=== PATIENT | female | born 1985 | race Caucasian/White ===

== ENCOUNTER 2016-06-13 14:25 | Emergency (ER) | payer MEDICAID ==
--- NOTE | 2016-06-13 14:57 | Emergency Department Report ---
Entered by DM SAEED, acting as scribe for BALDO KOVACS NP. Chief Complaint: Abdominal Pain Stated Complaint: 6WKS /ABD PAIN Time Seen by Provider: 06/13/16 14:48 - HPI History of Present Illness: 30 y/o female who is non-toxic appearing, in no acute distress, presents c/o right sided pelvic pain today. Describes pain as sharp, tearing sensation. She reports she is 6 weeks by LNMP, no OB or pre- care during this . Denies vaginal bleeding, vaginal discharge, dysuria. Notes Hx of uterine fibroids, ovarian cyst, ectopic . A3. PSHx . - ROS Review of Systems: Reports right pelvic pain, . Denies vaginal bleeding, vaginal discharge, dysuria. - Exam Vital Signs: Vital Signs 06/13/16 14:31 Temperature 98.6 F Pulse Rate 74 Respiratory 20 Rate Blood Pressure 140/89 O2 Sat by Pulse 100 Oximetry Physical Exam: Constitutional: Non toxic appearing, NAD. Respiratory: No respiratory distress. Abdomen: Abdomen is non-distended, soft with no tenderness to palpation in all quadrants. Slight discomfort with palpation to right pelvic area. MSE screening note: Focused history and physical exam performed. Due to findings the following was ordered:CBC, CMP, serum HCG quantitative, UA, Ultrasound OB Patient discussed with doctor:: MERRY GOTTI (continue with plan of care.) ED Disposition for MSE Condition: Stable Instructions: Abdominal Pain (ED) This documentation as recorded by the scribe,DM SAEED,accurately reflects the service I personally performed and the decisions made by ,BALDO KOVACS, [place].
[2016-06-13 15:58] LABS: Basophils % (Auto) 0.6 % (0.0-1.8); Eosinophils % (Auto) 1.6 % (0.0-4.3); Hematocrit 39.5 % (30.3-42.9); Hemoglobin 13.1 gm/dl (10.1-14.3); Mean Corpuscular HGB Conc 33 % (30-34); Mean Corpuscular Hemoglobin 30 pg (28-32); Mean Corpuscular Volume 90 fl (79-97); Platelet Count 284 K/mm3 (140-440); Red Cell Distribution Width 12.5 % (13.2-15.2); White Blood Count 13.7 K/mm3 (4.5-11.0)
[2016-06-13 16:13] LABS: Alanine Aminotransferase 8 units/L (7-56); Albumin 3.7 g/dL (3.9-5); Albumin/Globulin Ratio 1.6 %; Alkaline Phosphatase 56 units/L (35-129); Anion Gap 16 mmol/L; BUN/Creatinine Ratio 16.66; Blood Urea Nitrogen 10 mg/dL (7-17); Calcium 8.8 mg/dL (8.4-10.2); Carbon Dioxide 22 mmol/L (22-30); Chloride 102.1 mmol/L (98-107); Glucose 99 mg/dL (65-100); Sodium 136 mmol/L (137-145)
[2016-06-13 16:58] LABS: Bacteria,Urine 1+ /HPF (Negative); Bilirubin,Urine NEG (Negative); Blood,Urine SM (Negative); Ketones,Urine TR mg/dL (Negative); Leukocyte Esterase,Urine NEG (Negative); Mucus,Urine 1+ /HPF; Nitrite,Urine NEG (Negative); Protein,Urine <15 mg/dL mg/dL (Negative)
[2016-06-13 17:01] LABS: WBC,Urine < 1.0 /HPF (0.0-6.0)
--- NOTE | 2016-06-13 18:27 | Ultrasound Report ---
FINAL REPORT PROCEDURE: US OB TRANSVAGINAL TECHNIQUE: Real-time transabdominal and transvaginal sonography of the uterus, placenta, amniotic fluid, adnexa, and fetus was performed with image documentation. Measurements were obtained to determine age/size. M-mode Doppler was used to document heartbeat. CPT 53368 and 44319 HISTORY: pelvic pain h/o ovarian cyst COMPARISON: No prior studies are available for comparison. FINDINGS: ADDITIONAL GESTATION: None. Single live intrauterine is seen with crown-rump length of 3.7 millimeters corresponding to 6 weeks 0 days gestational age. Mean sac diameter is 2.4 cm corresponding to 7 weeks 3 days gestational age. Average gestational age is 6 weeks 5 days with estimated date of delivery of February 01, 2017. heart rate is 98 beats per minute. Yolk sac is seen. Right ovary measures 3.5 x 2.4 x 3.1 cm and contains a 2.4 cm complex cyst. Left ovary measures 2.7 x 1.7 x 2.3 cm and has 2 small follicles. No free pelvic fluid is seen. IMPRESSION: 1. Single live intrauterine gestation at approximately 6 weeks 5 days. 2. EDC by US February 01, 2017. 3. Complete anatomic survey at 18-20 weeks suggested.
--- NOTE | 2016-06-13 18:27 | Ultrasound Report ---
FINAL REPORT PROCEDURE: US OB \T\lt; = 14 WEEKS FETUS TECHNIQUE: Real-time transabdominal and transvaginal sonography of the uterus, placenta, amniotic fluid, adnexa, and fetus was performed with image documentation. Measurements were obtained to determine age/size. M-mode Doppler was used to document heartbeat. CPT 15361 and 47761 HISTORY: pelvic pain/6 weeks COMPARISON: No prior studies are available for comparison. FINDINGS: ADDITIONAL GESTATION: None. Single live intrauterine is seen with crown-rump length of 3.7 millimeters corresponding to 6 weeks 0 days gestational age. Mean sac diameter is 2.4 cm corresponding to 7 weeks 3 days gestational age. Average gestational age is 6 weeks 5 days with estimated date of delivery of February 01, 2017. heart rate is 98 beats per minute. Yolk sac is seen. Right ovary measures 3.5 x 2.4 x 3.1 cm and contains a 2.4 cm complex cyst. Left ovary measures 2.7 x 1.7 x 2.3 cm and has 2 small follicles. No free pelvic fluid is seen. IMPRESSION: 1. Single live intrauterine gestation at approximately 6 weeks 5 days. 2. EDC by US February 01, 2017 3. Complete anatomic survey at 18-20 weeks suggested.
--- NOTE | 2016-06-13 20:06 | Emergency Department Report ---
ED Abdominal Pain HPI - General Chief Complaint: Abdominal Pain Stated Complaint: 6WKS /ABD PAIN Time Seen by Provider: 06/13/16 19:53 Source: patient Mode of arrival: Ambulatory Limitations: No Limitations - History of Present Illness Initial Comments: 30 y/o female who is non-toxic appearing, in no acute distress, presents c/o right sided pelvic pain today. Describes pain as intermittent sharp, tearing sensation and rates it as a 9 out of 10. She denies any abdominal pain at this time. She reports she is 6 weeks according to LMP, no OB or pre- care during this . She states she was unable to get an appointment with OBGYN since the next available apppointment was on June 23. Admits to nausea. Denies fever, chills, vomiting, chest pain, shortness of breath, vaginal bleeding, vaginal discharge, dysuria, increased urinary frequency or urgency, blood in urine. Notes Hx of uterine fibroids, ovarian cyst and ectopic . A3. MD Complaint: abdominal pain Onset/Timin -: week(s) Location: RLQ Radiation: none Migration to: no migration Severity: Unable to Determine Severity scale (0 -10): 0 Quality: stabbing, sharp Consistency: intermittent Improves With: nothing Worsens With: other (cough/sneezing) Associated Symptoms: nausea. denies: vomiting, diarrhea, fever, chills, constipation, dysuria, hematemesis, hematochezia, hematuria - Related Data LMP Date: 04/27/16 Previous Rx's Medication Instructions Recorded Last Taken Type Doxylamine/Pyridoxine HCl 2 each PO QHS #40 tablet. 06/13/16 Unknown Rx [Lenin Ware 10-10 mg Tablet] Vit-Fe Fumar-FA [ 1 tab PO QDAY #30 tablet 06/13/16 Unknown Rx Vitamin] Allergies Allergy/AdvReac Type Severity Reaction Status Date / Time No Known Allergies Allergy Unverified 06/13/16 14:35 ED Review of Systems ROS: Stated complaint: 6WKS /ABD PAIN Other details as noted in HPI Constitutional: denies: chills, fever, malaise Eyes: denies: eye pain ENT: denies: ear pain, throat pain, congestion Respiratory: denies: cough, shortness of breath, wheezing Cardiovascular: denies: chest pain, palpitations Endocrine: no symptoms reported Gastrointestinal: abdominal pain, nausea. denies: vomiting, diarrhea, constipation Genitourinary: denies: urgency, dysuria, frequency, hematuria, discharge Neurological: denies: headache, weakness ED Past Medical Hx - Past Medical History Previous Medical History?: No - Surgical History Additional Surgical History: ovarian cyst with rupture of fallopian tube - Social History Smoking Status: Current Every Day Smoker Substance Use Type: None - Medications Home Medications: Home Medications Medication Instructions Recorded Confirmed Last Taken Type Doxylamine/Pyridoxine HCl 2 each PO QHS #40 tablet. 06/13/16 Unknown Rx [Diclegis Dr 10-10 mg Tablet] Vit-Fe Fumar-FA [ 1 tab PO QDAY #30 tablet 06/13/16 Unknown Rx Vitamin] ED Physical Exam - General Limitations: No Limitations General appearance: alert, in no apparent distress - Head Head exam: Present: atraumatic, normocephalic - Eye Eye exam: Present: normal appearance, EOMI - ENT ENT exam: Present: normal exam, mucous membranes moist - Neck Neck exam: Present: normal inspection, full ROM. Absent: tenderness - Respiratory Respiratory exam: Present: normal lung sounds bilaterally. Absent: respiratory distress, wheezes, rales, rhonchi - Cardiovascular Cardiovascular Exam: Present: regular rate, normal rhythm. Absent: systolic murmur, diastolic murmur, rubs, gallop - GI/Abdominal GI/Abdominal exam: Present: soft, normal bowel sounds. Absent: tenderness, guarding, rebound, rigid - Rectal Rectal exam: Present: deferred - Extremities Exam Extremities exam: Present: normal inspection, full ROM - Back Exam Back exam: Present: normal inspection, full ROM. Absent: CVA tenderness (R), CVA tenderness (L) - Neurological Exam Neurological exam: Present: alert, oriented X3, normal gait - Psychiatric Psychiatric exam: Present: normal affect, normal mood - Skin Skin exam: Present: warm, dry, intact ED Course Vital Signs 06/13/16 14:31 Temperature 98.6 F Pulse Rate 74 Respiratory 20 Rate Blood Pressure 140/89 O2 Sat by Pulse 100 Oximetry ED Medical Decision Making - Lab Data Result diagrams: 06/13/16 15:36 06/13/16 15:36 Vital Signs 06/13/16 14:31 Temperature 98.6 F Pulse Rate 74 Respiratory 20 Rate Blood Pressure 140/89 O2 Sat by Pulse 100 Oximetry Lab Results 06/13/16 06/13/16 06/13/16 Range/Units 15:36 15:36 15:36 WBC 13.7 H (4.5-11.0) K/mm3 RBC 4.40 (3.65-5.03) M/mm3 Hgb 13.1 (10.1-14.3) gm/dl Hct 39.5 (30.3-42.9) % MCV 90 (79-97) fl MCH 30 (28-32) pg MCHC 33 (30-34) % RDW 12.5 L (13.2-15.2) % Plt Count 284 (140-440) K/mm3 Lymph % (Auto) 19.5 (13.4-35.0) % [place] % (Auto) 8.0 H (0.0-7.3) % Eos % (Auto) 1.6 (0.0-4.3) % Baso % (Auto) 0.6 (0.0-1.8) % Lymph # 2.7 (1.2-5.4) K/mm3 [place] # 1.1 H (0.0-0.8) K/mm3 Eos # 0.2 (0.0-0.4) K/mm3 Baso # 0.1 (0.0-0.1) K/mm3 Seg Neutrophils % 70.3 H (40.0-70.0) % Seg Neutrophils # 9.7 H (1.8-7.7) K/mm3 Sodium 136 L (137-145) mmol/L Potassium 4.0 (3.6-5.0) mmol/L Chloride 102.1 (98-107) mmol/L Carbon Dioxide 22 (22-30) mmol/L Anion Gap 16 mmol/L BUN 10 (7-17) mg/dL Creatinine 0.6 L (0.7-1.2) mg/dL Estimated GFR > 60 ml/min BUN/Creatinine Ratio 16.66 % Glucose 99 (65-100) mg/dL Calcium 8.8 (8.4-10.2) mg/dL Total Bilirubin 0.40 (0.1-1.2) mg/dL AST 12 (5-40) units/L ALT 8 (7-56) units/L Alkaline Phosphatase 56 (35-129) units/L Total Protein 6.0 L (6.3-8.2) g/dL Albumin 3.7 L (3.9-5) g/dL Albumin/Globulin Ratio 1.6 % HCG, Quant 46012 H (0-4) mIU/mL Urine Color (Yellow) Urine Turbidity (Clear) Urine pH (5.0-7.0) Ur Specific [place] (1.003-1.030) Urine Protein (Negative) mg/dL Urine Glucose (UA) (Negative) mg/dL Urine Ketones (Negative) mg/dL Urine Blood (Negative) Urine Nitrite (Negative) Urine Bilirubin (Negative) Urine Urobilinogen (<2.0) mg/dL Ur Leukocyte Esterase (Negative) Urine WBC (Auto) (0.0-6.0) /HPF Urine RBC (Auto) (0.0-6.0) /HPF U Epithel Cells (Auto) (0-13.0) /HPF Urine Bacteria (Auto) (Negative) /HPF Urine Mucus /HPF 06/13/16 Range/Units 16:04 WBC (4.5-11.0) K/mm3 RBC (3.65-5.03) M/mm3 Hgb (10.1-14.3) gm/dl Hct (30.3-42.9) % MCV (79-97) fl MCH (28-32) pg MCHC (30-34) % RDW (13.2-15.2) % Plt Count (140-440) K/mm3 Lymph % (Auto) (13.4-35.0) % [place] % (Auto) (0.0-7.3) % Eos % (Auto) (0.0-4.3) % Baso % (Auto) (0.0-1.8) % Lymph # (1.2-5.4) K/mm3 [place] # (0.0-0.8) K/mm3 Eos # (0.0-0.4) K/mm3 Baso # (0.0-0.1) K/mm3 Seg Neutrophils % (40.0-70.0) % Seg Neutrophils # (1.8-7.7) K/mm3 Sodium (137-145) mmol/L Potassium (3.6-5.0) mmol/L Chloride (98-107) mmol/L Carbon Dioxide (22-30) mmol/L Anion Gap mmol/L BUN (7-17) mg/dL Creatinine (0.7-1.2) mg/dL Estimated GFR ml/min BUN/Creatinine Ratio % Glucose (65-100) mg/dL Calcium (8.4-10.2) mg/dL Total Bilirubin (0.1-1.2) mg/dL AST (5-40) units/L ALT (7-56) units/L Alkaline Phosphatase (35-129) units/L Total Protein (6.3-8.2) g/dL Albumin (3.9-5) g/dL Albumin/Globulin Ratio % HCG, Quant (0-4) mIU/mL Urine Color Yellow (Yellow) Urine Turbidity Cloudy (Clear) Urine pH 7.0 (5.0-7.0) Ur Specific [place] 1.024 (1.003-1.030) Urine Protein <15 mg/dl (Negative) mg/dL Urine Glucose (UA) Neg (Negative) mg/dL Urine Ketones Tr (Negative) mg/dL Urine Blood Sm (Negative) Urine Nitrite Neg (Negative) Urine Bilirubin Neg (Negative) Urine Urobilinogen 4.0 (<2.0) mg/dL Ur Leukocyte Esterase Neg (Negative) Urine WBC (Auto) < 1.0 (0.0-6.0) /HPF Urine RBC (Auto) 9.0 (0.0-6.0) /HPF U Epithel Cells (Auto) 12.0 (0-13.0) /HPF Urine Bacteria (Auto) 1+ (Negative) /HPF Urine Mucus 1+ /HPF - Radiology Data Radiology results: report reviewed PROCEDURE: US OB TRANSVAGINAL TECHNIQUE: Real-time transabdominal and transvaginal sonography of the uterus, placenta, amniotic fluid, adnexa, and fetus was performed with image documentation. Measurements were obtained to determine age/size. M-mode Doppler was used to document heartbeat. CPT 60824 and 66065 HISTORY: pelvic pain h/o ovarian cyst COMPARISON: No prior studies are available for comparison. FINDINGS: ADDITIONAL GESTATION: None. Single live intrauterine is seen with crown-rump length of 3.7 millimeters corresponding to 6 weeks 0 days gestational age. Mean sac diameter is 2.4 cm corresponding to 7 weeks 3 days gestational age. Average gestational age is 6 weeks 5 days with estimated date of delivery of February 01, 2017. heart rate is 98 beats per minute. Yolk sac is seen. Right ovary measures 3.5 x 2.4 x 3.1 cm and contains a 2.4 cm complex cyst. Left ovary measures 2.7 x 1.7 x 2.3 cm and has 2 small follicles. No free pelvic fluid is seen. IMPRESSION: 1. Single live intrauterine gestation at approximately 6 weeks 5 days. 2. EDC by US February 01, 2017. 3. Complete anatomic survey at 18-20 weeks suggested. - Medical Decision Making 30-year-old female presents today complaining of intermittent abdominal pain 1 week. Patient is currently 6 weeks and 5 days . Her ultrasound reveals a right ovarian cyst however no free fluid is noted. Consulted with Dr. May in regards to patient's history, physical and lab findings. He agrees the patient should be discharged home on vitamins and nausea medication, to follow up with [facility]. A referral for [facility] has been provided. Patient is in no acute distress at this time. She will be discharged home and is encouraged to follow up with a primary care provider. She was sent home on vitamins and Diclegis and is encouraged to return to the emergency room for any worsening symptoms. Critical care attestation.: If time is entered above; I have spent that time in minutes in the direct care of this critically ill patient, excluding procedure time. ED Disposition Clinical Impression: Nausea Abdominal pain during Qualifiers: Trimester: first trimester Qualified Code(s): O26.891 - Other specified related conditions, first trimester; R10.9 - Unspecified abdominal pain Disposition: DISCHARGED TO HOME OR SELFCARE Is pt being admited?: No Does the pt Need Aspirin: No Condition: Stable Instructions: (ED), Abdominal Pain in (ED), Acute Nausea and Vomiting (ED) Additional Instructions: Follow-up with [facility]. Return to the emergency department if symptoms worsen. Prescriptions: Doxylamine/Pyridoxine HCl [Lenin Ware 10-10 mg Tablet] 2 each PO QHS #40 tablet. Vit-Fe Fumar-FA [ Vitamin] 1 tab PO QDAY #30 tablet Referrals: PRIMARY CARE, [Primary Care Provider] - 3-5 Days JOSE ALBERTO PEACE MD [Staff Physician] - 3-5 Days Forms: Work/School Release Form(ED) Time of Disposition: 20:14
[2016-06-13 20:29] VITALS: BP 106/67
== END 2016-06-13 20:30 | disposition home or self-care (01) ==
LOC: ED 14:25
DX: O26.891 Other specified pregnancy related conditions, first trimester (principal); R10.31 Right lower quadrant pain; R11.0 Nausea; O99.331 Smoking (tobacco) complicating pregnancy, first trimester; Z3A.01 Less than 8 weeks gestation of pregnancy
CPT/HCPCS: 36415; 76801; 76817; 80053; 81001; 84702; 85025

== ENCOUNTER 2016-06-26 20:44 | Emergency (ER) | payer OTHER, MEDICAID ==
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
[2016-06-27 01:37] LABS: Bilirubin,Urine NEG (Negative); Blood,Urine NEG (Negative); Ketones,Urine NEG (Negative); Leukocyte Esterase,Urine TR (Negative); Mucus,Urine FEW /HPF; Nitrite,Urine NEG (Negative); Protein,Urine <15 mg/dL mg/dL (Negative); Urobilinogen,Urine < 2.0 mg/dL (<2.0)
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
[2016-06-27 03:54] VITALS: BP 104/69
== END 2016-06-27 04:23 | disposition home or self-care (01) ==
LOC: ED 20:44
DX: O20.0 Threatened abortion (principal); O34.81 Maternal care for other abnormalities of pelvic organs, first trimester; N83.202 Unspecified ovarian cyst, left side; N83.201 Unspecified ovarian cyst, right side; O26.891 Other specified pregnancy related conditions, first trimester; M54.5 Low back pain; O99.331 Smoking (tobacco) complicating pregnancy, first trimester; Z3A.08 8 weeks gestation of pregnancy; V43.52XA Car driver injured in collision with other type car in traffic accident, initial encounter; Y93.89 Activity, other specified; Y99.8 Other external cause status; Y92.89 Other specified places as the place of occurrence of the external cause
CPT/HCPCS: 36415; 76801; 76817; 81001; 84702